=== PATIENT | female | born 1960 | race Caucasian/White ===

== ENCOUNTER 2018-11-05 13:40 | Emergency (ER) | payer OTHER ==
--- NOTE | 2018-11-05 13:50 | PDOC ---
History of Present Illness - General Chief Complaint: Altered Mental Status Stated Complaint: AMS/lethargy not walking now. Time Seen by Provider: 11/05/18 13:49 History Source: [facility] Records Exam Limitations: Dementia - History of Present Illness Initial Comments: 11/05/18 13:56 This is a 57 yo F with PMH of anxiety, bipolar disorder, PD with dementia, and HTN, BIBEMS from [facility] due to AMS. Per nursing staff, patient usually ambulatory with a walker and sometimes without it. She typically speaks clearly. Today she was unable to walk in a straight line even with staff help and became lethargic and incoherent. [facility] staff dose not report any other cute symptoms. She is full code and taken care of by Dr Gomes. On presentation patient answers some questions appropriately and complains of perianal pain, nbnb vomiting x 4 yesrterday and dysuria. Otherwise she is an unreliable historian. 11/05/18 14:34 Past History - Past Medical History Allergies/Adverse Reactions: Allergies Allergy/AdvReac Type Severity Reaction Status Date / Time No Known Allergies Allergy Verified 11/05/18 14:10 Home Medications: Ambulatory Orders Acetaminophen [Tylenol] 650 mg PO QID PRN 11/05/18 Aspirin 81 mg PO DAILY 11/05/18 Bacitracin - [Bacitracin Topical Ointment -] 1 applic TP BID 11/05/18 Bupropion HCl [Wellbutrin Sr] 150 mg PO BID 11/05/18 Calcium Carbonate/Vitamin D3 [Calcium 500 + Vit D Caplet] 1 each PO DAILY Divalproex Sodium [Depakote] 500 mg PO BID 11/05/18 Gabapentin [Neurontin] 600 mg PO TID 11/05/18 Lamotrigine [Lamictal] 50 mg PO DAILY 11/05/18 Lamotrigine [Lamictal] 75 mg PO HS 11/05/18 Magnesium Hydroxide [Milk of Magnesia] 400 mg PO PRN PRN 11/05/18 Melatonin 5 mg PO HS 11/05/18 Pravastatin Sodium [Pravachol] 40 mg PO HS 11/05/18 Quetiapine Fumarate [Seroquel] 100 tab PO DAILY 11/05/18 Quetiapine Fumarate [Seroquel] 300 mg PO HS 11/05/18 Sodium Phosphate,Chambers-Dibasic [Fleet Enema] 133 ml RC PRN PRN 11/05/18 CVA: Yes COPD: No Dementia: Yes Diabetes: No HTN: Yes Psychiatric Problems: Yes (bipolar, anxiety, PD with dementia) Seizures: No - Suicide/Smoking/Psychosocial Hx Smoking Status: No Smoking History: Unknown if ever smoked Have you smoked in the past 12 months: No Number of Cigarettes Smoked Daily: 0 Hx Alcohol Use: No Drug/Substance Use Hx: No Substance Use Type: None Review of Systems - Review of Systems Able to Perform ROS?: No ( ams ) *Physical Exam - Physical Exam General Appearance: No: Apparent Distress HEENT: positive: EOMI, TERENCE Neck: positive: Supple. negative: Tender, Carotid bruit, Lymphadenopathy (R), Lymphadenopathy (L) Respiratory/Chest: positive: Lungs Clear, Normal Breath Sounds Cardiovascular: positive: Regular Rate, S1, S2. negative: JVD Gastrointestinal/Abdominal: positive: Soft, Decreased BS, Tenderness (suprapubic ), Mass (suprapubic). negative: Rebound Rectal Exam: positive: other (perianal redness ) Musculoskeletal: negative: CVA Tenderness Integumentary: positive: Dry, Warm Neurologic: positive: vocational training teacher II-XII NML intact (grossly). negative: Fully Oriented (orianted to self and place but not time ), Alert (lethargic) ED Treatment Course - LABORATORY CBC & Chemistry Diagram: 11/05/18 14:55 11/05/18 14:55 - ADDITIONAL ORDERS Additional order review: Differential for AMS includes infectious/metabolic causes vs intaracraneal pathology 11/05/18 14:44 EKG ns 99 lbbb, no change from prior 11/05/18 14:46 11/05/18 15:48 labs significant for lactic acid of 2.5 and mild decrease in GFR. ua clean 11/05/18 17:26 CT head unremarkable for acute pathology 11/05/18 18:04 ams was likley caused by her verious antipsychitic medications, and mild lactic acidosis was likely caused by urinary retention (straight cathed 650 cc), which in turn may have resulted form anticholinergic effects of said medication. She is currently sleeping after being administered haldol 5 im in order to tolerate ct head. will reassess when she wakes up and if patient is back to baseline will transfer back to [facility] *DC/Admit/Observation/Transfer Diagnosis at time of Disposition: Altered mental status, Urinary retention - Discharge Dispostion [facility]position[facility] Condition at time of disposition: Stable Decision to Admit order: No - Referrals Referrals: Saulo Sutton [Primary Care Provider] - - Patient Instructions Additional Instructions: Patients altered mental status was likely caused by her antipsychitic medications. CT head was negative for acute pathology and there was no sign of infection on labs other than mild lactic acidosis 2.5 that was probably caused by urinary retention (650 cc of urine on straight cath), whihc was probably due to anticholenergic effects of the antipsychotic medications. She returned to baseline mental status in ED. We recommend patients list of antipsychotics to be reviewed and revised. - Post Discharge Activity
[2018-11-05 14:10] VITALS: TEMP 99.2; BMI 32.3
[2018-11-05 15:07] LABS: BASO % 0.2 % (0-2.0); EOS % 2.9 % (0-4.5); HEMATOCRIT 41.2 % (32.4-45.2); HEMOGLOBIN 14.2 GM/dL (10.7-15.3); LYMPH % 11.1 % (8-40); MCH 33.9 pg (25.7-33.7); MCHC 34.4 g/dl (32.0-36.0); MEAN CELL VOLUME 98.4 fl (80-96); MEAN PLT VOLUME 9.9 fl (7.5-11.1); MONO % 12.6 % (3.8-10.2); NEUT % 73.2 % (42.8-82.8); PLATELET COUNT 176 K/MM3 (134-434); RBC 4.18 M/mm3 (3.60-5.2); RDW 14.1 % (11.6-15.6); WHITE BLOOD COUNT 6.3 K/mm3 (4.0-10.0)
[2018-11-05] MEDS ORDERED: SODIUM CHLORIDE 0.9% 500 ML INFUS.BAG IV ONE (15:26)
[2018-11-05] MEDS ORDERED: HALOPERIDOL LACTATE 5 MG/ML IM ONE ×2 (15:30→15:55)
[2018-11-05] MEDS ORDERED: HALOPERIDOL LACTATE 5 MG/ML ONE (15:30)
--- NOTE | 2018-11-05 15:31 | PDOC ---
Attending Attestation - HPI HPI: This patient is a 57 year old female with PMHx of anxiety, bipolar disorder, PD with dementia, and HTN, who was sent from [facility] for AMS. As per nursing staff, patient usually ambulatory with walker and speech is coherent. Today, they state that she was unable to walk without staff assistance and she became incoherent and lethargic.Patient reports increased pain around her anus that comes and goes in intensity for the past couple of days. She also reports some pain on urination and 4 episodes of nbnb vomiting yesterday. She states that she hasn't had much of an appetite for the past couple of days. Denies any fever or chills. 11/05/18 15:33 - Physicial Exam PE: Vitals: Triage Vital signs reviewed. Hypotensive 103/58 General Appearance: no acute distress, well nourished well developed Head: Atraumatic Neck: Supple; No Nuchal rigidity Chest Wall: Nontender Cardiac: Slightl tachycardic. Regular rhythm, no murmurs, no rubs, no gallops Lungs: Clear to auscultation bilateral, good air movement bilaterally Abdomen: Soft, non distended, normal bowel sounds, non tender to palpation Extremities:Moving all extremities. No cyanosis, clubbing, or edema Skin: Warm and dry, no rashes or lesions, no rash, no petechiae Neuro: AOX1; Cranial Nerves 2-12 grossly intact, Strength intact to all extremities, Sensation intact to all extremities, gait normal Psych: Normal mood, normal affect <Shell Davis - Last Filed: 11/05/18 15:35> - Resident Resident Name: Sully Emanuel - ED Attending Attestation I have performed the following: I have examined & evaluated the patient, The case was reviewed & discussed with the resident, I agree w/resident's findings & plan, Exceptions are as noted - Medical Decision Making 11/05/18 16:23 This patient is a 57 year old female with PMHx of anxiety, bipolar disorder, PD with dementia, and HTN, who was sent from [facility] for AMS. As per nursing staff, patient usually ambulatory with walker and speech is coherent. Today, they state that she was unable to walk without staff assistance and she became incoherent and lethargic.Patient reports increased pain around her anus that comes and goes in intensity for the past couple of days. She also reports some pain on urination and 4 episodes of nbnb vomiting yesterday. She states that she hasn't had much of an appetite for the past couple of days. Altered mental status with difficulty ambulating positive lactic acid on laboratory analysis IV fluids ordered urinalysis pending Patient agitated noncompliant with head CT and straight catheter urinalysis Haldol given for anxiolysis Dr. Caballero to follow up labs head CT likely admit versus observation <Beto Stevenson - Last Filed: 11/05/18 16:23>
[2018-11-05 15:39] LABS: LIPASE 79 U/L (73-393); TRIGLYCERIDES 95 mg/dL (0-150)
[2018-11-05 15:43] LABS: ALBUMIN 3.4 g/dl (3.4-5.0); ALK PHOS 76 U/L (45-117); ANION GAP 9 MMOL/L (8-16); BILIRUBIN,TOTAL 0.3 mg/dL (0.2-1); BLOOD UREA NITROGEN 21 mg/dL (7-18); CHLORIDE 109 mmol/L (98-107); CO2 24 mmol/L (21-32); CREATININE 1.1 mg/dL (0.55-1.3); GLUCOSE,RANDOM 103 mg/dL (74-106); POTASSIUM 4.5 mmol/L (3.5-5.1); SGOT/AST 14 U/L (15-37); SGPT/ALT 17 U/L (13-61); SODIUM 142 mmol/L (136-145); TOT PROT 6.4 g/dl (6.4-8.2)
[2018-11-05 16:36] VITALS: BP 98/56; PULSE 79
[2018-11-05 17:55] LABS: URINE APPEARANCE CLEAR; URINE BILIRUBIN NEGATIVE (<2.0 mg/dL); URINE COLOR YELLOW; URINE GLUCOSE (UA) NEGATIVE (NEGATIVE); URINE KETONE NEGATIVE (NEGATIVE); URINE LEUK ESTERASE NEGATIVE (NEGATIVE); URINE NITRITE NEGATIVE (NEGATIVE); URINE PROTEIN NEGATIVE (NEGATIVE); URINE UROBILINOGEN NEGATIVE mg/dL (0.2-1.0)
--- NOTE | 2018-11-06 16:44 | EKG ---
Test Reason : Blood Pressure : / mmHG Vent. Rate : 099 BPM Atrial Rate : 099 BPM P-R Int : 184 ms QRS Dur : 160 ms QT Int : 396 ms P-R-T Axes : 032 022 230 degrees QTc Int : 508 ms NORMAL SINUS RHYTHM LEFT BUNDLE BRANCH BLOCK ABNORMAL ECG WHEN COMPARED WITH ECG OF 25-MAR-2013 16:23, T WAVE INVERSION NOW EVIDENT IN LATERAL LEADS Confirmed by Lia Renteria ([id number]) on 11/06/2018 4:44:11 PM Referred By: Confirmed By:Lia Renteria
== END 2018-11-06 02:20 ==
LOC: JER 13:40
PROC: 3E0337Z Introduction of Electrolytic and Water Balance Substance into Peripheral Vein, Percutaneous Approach (ICD-10-PCS; principal; 2018-11-05)
PROC: 3E033GC Introduction of Other Therapeutic Substance into Peripheral Vein, Percutaneous Approach (ICD-10-PCS; 2018-11-05)
DX: R41.82 Altered mental status, unspecified (principal); R33.9 Retention of urine, unspecified; F31.9 Bipolar disorder, unspecified; G20 Parkinson's disease; F02.80 Dementia in other diseases classified elsewhere, unspecified severity, without behavioral disturbance, psychotic disturbance, mood disturbance, and anxiety; I10 Essential (primary) hypertension; F41.0 Panic disorder [episodic paroxysmal anxiety]
CPT/HCPCS: 36415; 70450-TC; 80053; 81003; 83605; 83690; 84478; 85025; 87086; 93005; 93010; 99282-25

== ENCOUNTER 2018-12-14 22:51 | Emergency (ER) | payer OTHER ==
--- NOTE | 2018-12-15 00:34 | PDOC ---
History of Present Illness - General Stated Complaint: FALL Time Seen by Provider: 12/15/18 00:27 History Source: [facility] Exam Limitations: Dementia - History of Present Illness Occurred: reports: just prior to arrival Severity: reports: moderate Pain Location: reports: face Method of Injury: Yes: fall Loss of Consciousness: unsure Past History - Past Medical History Allergies/Adverse Reactions: Allergies Allergy/AdvReac Type Severity Reaction Status Date / Time No Known Allergies Allergy Verified 12/15/18 00:48 Home Medications: Ambulatory Orders Acetaminophen [Tylenol] 650 mg PO QID PRN 11/05/18 Aspirin 81 mg PO DAILY 11/05/18 Bacitracin - [Bacitracin Topical Ointment -] 1 applic TP BID 11/05/18 Bupropion HCl [Wellbutrin Sr] 150 mg PO BID 11/05/18 Calcium Carbonate/Vitamin D3 [Calcium 500 + Vit D Caplet] 1 each PO DAILY Divalproex Sodium [Depakote] 500 mg PO BID 11/05/18 Gabapentin [Neurontin] 600 mg PO TID 11/05/18 Lamotrigine [Lamictal] 50 mg PO DAILY 11/05/18 Lamotrigine [Lamictal] 75 mg PO HS 11/05/18 Magnesium Hydroxide [Milk of Magnesia] 400 mg PO PRN PRN 11/05/18 Melatonin 5 mg PO HS 11/05/18 Pravastatin Sodium [Pravachol] 40 mg PO HS 11/05/18 Quetiapine Fumarate [Seroquel] 100 tab PO DAILY 11/05/18 Quetiapine Fumarate [Seroquel] 300 mg PO HS 11/05/18 Sodium Phosphate,Donley-Dibasic [Fleet Enema] 133 ml RC PRN PRN 11/05/18 CVA: Yes COPD: No Dementia: Yes Diabetes: No HTN: Yes Psychiatric Problems: Yes (bipolar, anxiety, PD with dementia) Seizures: No - Suicide/Smoking/Psychosocial Hx Smoking Status: No Smoking History: Unknown if ever smoked Have you smoked in the past 12 months: No Number of Cigarettes Smoked Daily: 0 Hx Alcohol Use: No Drug/Substance Use Hx: No Substance Use Type: None Review of Systems - Review of Systems Able to Perform ROS?: No Is the patient limited Belarusian proficient: No Integumentary: Yes: Other (nasal bridge laceration) *Physical Exam - Physical Exam General Appearance: Yes: Nourished HEENT: positive: Normal Voice, Other (3 cm nasal bridge laceration) Respiratory/Chest: positive: Lungs Clear Cardiovascular: positive: Regular Rhythm, Regular Rate Gastrointestinal/Abdominal: positive: Soft Musculoskeletal: positive: Normal Inspection Extremity: positive: Normal Inspection Integumentary: positive: Normal Color, Warm Neurologic: positive: Alert, Other (dementia,Parkinson's w chronic h/o falling) ED Treatment Course - RADIOLOGY Radiology Studies Ordered: Category Date Time Status FACIAL BONES CT W/O CONTRAST [CT] Stat CT Scan 12/15/18 00:[address] WITHOUT CONTRAST [CT] Stat CT Scan 12/15/18 00:32 Ordered Medical Decision Making - Medical Decision Making 12/15/18 01:44 57-year-old female looking older than stated age. Brought in by ambulance from [facility] after a fall past medical history significant for dementia, Parkinson's disease, osteoarthritis, hypertension, bipolar disorder, low back pain, history of frequent falls 12/15/18 01:46 Patient is a poor historian and review of systems was difficult Patient sent for CAT scan of the head and facial bones, she will need closure of her facial laceration 12/15/18 01:59 review of meds: no anti coagulants *DC/Admit/Observation/Transfer - Discharge Dispostion Condition at time of disposition: Fair - Referrals - Patient Instructions - Post Discharge Activity
[2018-12-15] MEDS ORDERED: HALOPERIDOL LACTATE 5 MG/ML IM ONE (00:47)
[2018-12-15 00:49] VITALS: TEMP 97.9; BMI 31.5
[2018-12-15] MEDS ORDERED: HALOPERIDOL LACTATE 5 MG/ML ONE (02:07)
[2018-12-15] MEDS ORDERED: LORazepam 2 MG/ML SDV VIAL ONE (02:08)
--- NOTE | 2018-12-15 03:15 | PDOC ---
*Physical Exam - Vital Signs Last Vital Signs Temp Pulse Resp BP Pulse Ox 97.9 F 66 14 102/56 L 96 12/14/18 22:51 12/14/18 22:51 12/14/18 22:51 12/14/18 22:51 12/14/18 22:51 ED Treatment Course - RADIOLOGY Radiology Studies Ordered: Category Date Time Status CERVICAL SPINE CT W/O CONTR [CT] Stat CT Scan 12/15/18 02:48 Taken - Medications Given in the ED: ED Medications Discontinued Medications Generic Name Dose Route Start Last Admin Trade Name Paulo PRN Reason Stop Dose Admin Diphenhydramine HCl 25 mg 12/15/18 02:12 12/15/18 02:20 Benadryl Injection - IM 12/15/18 02:13 25 mg ONCE ONE Administration Haloperidol 5 mg 12/15/18 00:47 12/15/18 02:19 Haldol Injection (Fast Acting) - IM 12/15/18 00:48 5 mg ONCE ONE Administration Lorazepam 2 mg 12/15/18 02:08 12/15/18 02:19 Ativan Injection - IM 12/15/18 02:09 2 mg ONCE ONE Administration Medical Decision Making - Medical Decision Making 12/15/18 03:13 57-year-old female status post mechanical fall signed out to me to follow-up CT scan results and arrange flat serration repair Patient received Haldol prior to sign out to assist with imaging CT scan of the brain and facial bones was performed prior to patient becoming agitated She was sent over for CT scanning of the cervical spine which was medically necessary based on mechanism and patient's history of dementia 12/15/18 03:26 CT scan cervical spine was negative for fracture Wound repair by emergency department resident Discharge home to facility at [facility] *DC/Admit/Observation/Transfer Diagnosis at time of Disposition: Laceration of nose, Fall - Discharge Dispostion Disposition: HOME Condition at time of disposition: Stable Decision to Admit order: No - Referrals - Patient Instructions Printed Discharge Instructions: How to Prevent Falls, How to Care for a Laceration After Repair, DI for Laceration Repair With Dermabond, DI for Laceration Repair Steri-Strips - Post Discharge Activity
[2018-12-15 06:01] VITALS: BP 123/57; PULSE 61
== END 2018-12-15 07:57 ==
LOC: JER 22:51
PROC: 09QKXZZ Repair Nasal Mucosa and Soft Tissue, External Approach (ICD-10-PCS; principal; 2018-12-14)
PROC: 3E023NZ Introduction of Analgesics, Hypnotics, Sedatives into Muscle, Percutaneous Approach (ICD-10-PCS; 2018-12-14)
PROC: 3E023NZ Introduction of Analgesics, Hypnotics, Sedatives into Muscle, Percutaneous Approach (ICD-10-PCS; 2018-12-14)
PROC: 3E023GC Introduction of Other Therapeutic Substance into Muscle, Percutaneous Approach (ICD-10-PCS; 2018-12-14)
DX: S01.21XA Laceration without foreign body of nose, initial encounter (principal); W18.39XA Other fall on same level, initial encounter; Z91.81 History of falling; Y93.89 Activity, other specified; Y92.128 Other place in nursing home as the place of occurrence of the external cause; Y99.8 Other external cause status; I10 Essential (primary) hypertension; F31.9 Bipolar disorder, unspecified; F41.9 Anxiety disorder, unspecified; G20 Parkinson's disease; F02.80 Dementia in other diseases classified elsewhere, unspecified severity, without behavioral disturbance, psychotic disturbance, mood disturbance, and anxiety; M19.90 Unspecified osteoarthritis, unspecified site; Z86.73 Personal history of transient ischemic attack (TIA), and cerebral infarction without residual deficits
CPT/HCPCS: 12013; 70450-TC; 70486-TC; 72125-TC; 96372; 99282-25

== ENCOUNTER 2021-01-16 11:42 | Emergency (ER) | payer OTHER ==
[2021-01-16 12:01] VITALS: TEMP 99.3; BMI 22.2
[2021-01-16] MEDS ORDERED: ACETAMINOPHEN 500 MG TABLET (FP) PO ONE (14:52)
[2021-01-16] MEDS ORDERED: ACETAMINOPHEN 325 MG TABLET (FP) ONE (14:55)
[2021-01-16 19:44] VITALS: BP 134/71; PULSE 80
== END 2021-01-16 21:13 | disposition home or self-care (01) ==
LOC: JER 11:42
DX: Z04.89 Encounter for examination and observation for other specified reasons (principal)
CPT/HCPCS: 70450-TC; 72125-TC; 73060-TC-RT-FY; 99285-25

== ENCOUNTER 2021-01-21 21:29 | Inpatient (IN) | payer OTHER ==
[2021-01-21] MEDS ORDERED: PROPOFOL 1,000,000 MCG/100 ML VIAL IVPB SCH (21:45)
[2021-01-21 21:59] LABS: BASO % 0.4 % (0-2.0); EOS % 0.9 % (0-4.5); HEMATOCRIT 36.2 % (32.4-45.2); HEMOGLOBIN 12.3 GM/dL (10.7-15.3); MCH 32.8 pg (25.7-33.7); MCHC 33.9 g/dl (32.0-36.0); MEAN CELL VOLUME 96.7 fl (80-96); MEAN PLT VOLUME 8.8 fl (7.5-11.1); MONO % 6.3 % (3.8-10.2); NEUT % 79.4 % (42.8-82.8); PLATELET COUNT 188 K/MM3 (134-434); RBC 3.74 M/mm3 (3.60-5.2); RDW 13.6 % (11.6-15.6); WHITE BLOOD COUNT 9.3 K/mm3 (4.0-10.0)
[2021-01-21 22:07] LABS: INR 1.03 (0.83-1.09); PROTHROMBIN TIME (PATIENT) 12.4 SEC (9.7-13.0)
[2021-01-21 22:10] LABS: ACTIVATED PTT 25.6 SECONDS (25.2-36.5)
[2021-01-21 22:13] LABS: CHLORIDE 109 mmol/L (98-107); SODIUM 143 mmol/L (136-145)
[2021-01-21] MEDS ORDERED: MANNITOL 25% 12.5 GM/50 ML VIAL IVPB ONE (22:23)
[2021-01-21] MEDS ORDERED: levETIRAcetam 500 MG/5 ML INJECTION VIAL IVPB ONE ×2 (22:26→22:27)
[2021-01-21] MEDS ORDERED: PROPOFOL 1,000,000 MCG/100 ML VIAL ONE (22:27)
[2021-01-21 22:28] LABS: ALBUMIN 3.2 g/dl (3.4-5.0); ALK PHOS 94 U/L (45-117); ANION GAP 8 MMOL/L (8-16); BILIRUBIN,TOTAL 0.3 mg/dL (0.2-1); BLOOD UREA NITROGEN 14.5 mg/dL (7-18); CALCIUM 8.9 mg/dL (8.5-10.1); CO2 26 mmol/L (21-32); CREATININE 0.8 mg/dL (0.55-1.3); GLUCOSE,RANDOM 176 mg/dL (74-106); SGOT/AST 20 U/L (15-37); SGPT/ALT 13 U/L (13-61); TOT PROT 6.1 g/dl (6.4-8.2)
[2021-01-21] MEDS: PROPOFOL 1,000,000 MCG/100 ML VIAL IVPB SCH (22:35)
[2021-01-21 22:36] LABS: LACTIC ACID 2.4 mmol/L (0.4-2.0)
[2021-01-21 23:03] LABS: URINE APPEARANCE CLOUDY; URINE BILIRUBIN NEGATIVE (NEGATIVE); URINE COLOR YELLOW; URINE GLUCOSE (UA) NEGATIVE (NEGATIVE); URINE KETONE TRACE (NEGATIVE); URINE LEUK ESTERASE NEGATIVE (NEGATIVE); URINE NITRITE NEGATIVE (NEGATIVE); URINE PROTEIN NEGATIVE (NEGATIVE); URINE UROBILINOGEN 0.2 mg/dL (0.2-1.0)
[2021-01-21 23:55] LABS: ARTERIAL BLD GAS O2 SATURATION 99.8 mmHg (95-98); ARTERIAL BLOOD GAS BASE EXCESS -1.3 mmol/L (-2-2); ARTERIAL BLOOD GAS pH 7.395 (7.350-7.450)
[2021-01-21 23:57] LABS: ALLENS TEST POSITIVE
[2021-01-21 23:58] LABS: VENT MODE A/C; VENT RATE 16
[2021-01-22 06:57] LABS: BASO % 0.4 % (0-2.0); EOS % 0.4 % (0-4.5); HEMOGLOBIN 13.1 GM/dL (10.7-15.3); LYMPH % 14.8 % (8-40); MCHC 33.5 g/dl (32.0-36.0); MEAN CELL VOLUME 98.4 fl (80-96); MEAN PLT VOLUME 8.9 fl (7.5-11.1); MONO % 10.1 % (3.8-10.2); NEUT % 74.3 % (42.8-82.8); PLATELET COUNT 213 K/MM3 (134-434); RBC 3.97 M/mm3 (3.60-5.2); RDW 13.8 % (11.6-15.6); WHITE BLOOD COUNT 9.3 K/mm3 (4.0-10.0)
[2021-01-22 07:11] LABS: ALBUMIN 3.4 g/dl (3.4-5.0); BLOOD UREA NITROGEN 10.5 mg/dL (7-18); CALCIUM 8.5 mg/dL (8.5-10.1); MAGNESIUM 2.2 mg/dL (1.8-2.4)
[2021-01-22 07:14] LABS: CREATININE 0.7 mg/dL (0.55-1.3); PHOSPHOROUS 3.8 mg/dL (2.5-4.9)
[2021-01-22 07:16] LABS: BILIRUBIN,TOTAL 0.3 mg/dL (0.2-1); TOT PROT 6.5 g/dl (6.4-8.2)
[2021-01-22] MEDS: MUPIROCIN 2% TOPICAL OINTMENT FOR DECOLONIZATION NS SCH ×2 (09:00→22:20)
[2021-01-22] MEDS ORDERED: LABETALOL HCL 5 MG/1 ML (100MG/20 ML VIAL) IVPUSH PRN (11:02)
[2021-01-22] MEDS: PROPOFOL 1,000,000 MCG/100 ML VIAL IVPB SCH (22:20)
[2021-01-22] MEDS: CHLORHEXIDINE GLUCONATE 4% CLEANSER FOR DECOLONIZATION TP SCH (22:20)
[2021-01-23 07:18] LABS: HEMATOCRIT 45.8 % (32.4-45.2); HEMOGLOBIN 15.4 GM/dL (10.7-15.3); MCH 33.1 pg (25.7-33.7); MCHC 33.7 g/dl (32.0-36.0); MEAN CELL VOLUME 98.3 fl (80-96); MEAN PLT VOLUME 9.4 fl (7.5-11.1); PLATELET COUNT 313 K/MM3 (134-434); RBC 4.66 M/mm3 (3.60-5.2); RDW 13.9 % (11.6-15.6); WHITE BLOOD COUNT 15.2 K/mm3 (4.0-10.0)
[2021-01-23 07:36] LABS: ALBUMIN 3.3 g/dl (3.4-5.0)
[2021-01-23 07:37] LABS: BLOOD UREA NITROGEN 14.5 mg/dL (7-18)
[2021-01-23 07:39] LABS: CREATININE 0.6 mg/dL (0.55-1.3)
[2021-01-23 07:41] LABS: BILIRUBIN,TOTAL 0.5 mg/dL (0.2-1); TOT PROT 6.9 g/dl (6.4-8.2)
[2021-01-23 07:44] LABS: CALCIUM 9.8 mg/dL (8.5-10.1)
[2021-01-23] MEDS: MUPIROCIN 2% TOPICAL OINTMENT FOR DECOLONIZATION NS SCH ×2 (09:47→21:38)
[2021-01-23] MEDS: CHLORHEXIDINE GLUCONATE 4% CLEANSER FOR DECOLONIZATION TP SCH (21:39)
[2021-01-23] MEDS: PROPOFOL 1,000,000 MCG/100 ML VIAL IVPB SCH (21:57)
[2021-01-24] MEDS ORDERED: ACETAMINOPHEN 1000 MG/100 ML VIAL (NON FORMULARY) IVPB ONE (06:33)
[2021-01-24 07:11] LABS: BASO % 0.3 % (0-2.0); EOS % 0.2 % (0-4.5); HEMATOCRIT 46.2 % (32.4-45.2); HEMOGLOBIN 15.6 GM/dL (10.7-15.3); LYMPH % 14.4 % (8-40); MCH 33.2 pg (25.7-33.7); MCHC 33.8 g/dl (32.0-36.0); MEAN CELL VOLUME 98.4 fl (80-96); MEAN PLT VOLUME 9.7 fl (7.5-11.1); MONO % 10.3 % (3.8-10.2); NEUT % 74.8 % (42.8-82.8); PLATELET COUNT 296 K/MM3 (134-434); RDW 14.1 % (11.6-15.6); WHITE BLOOD COUNT 13.4 K/mm3 (4.0-10.0)
[2021-01-24 07:29] LABS: ALBUMIN 3.1 g/dl (3.4-5.0); CALCIUM 9.4 mg/dL (8.5-10.1)
[2021-01-24 07:30] LABS: BLOOD UREA NITROGEN 33.1 mg/dL (7-18); MAGNESIUM 2.4 mg/dL (1.8-2.4)
[2021-01-24 07:33] LABS: CREATININE 0.8 mg/dL (0.55-1.3)
[2021-01-24 07:34] LABS: BILIRUBIN,TOTAL 0.4 mg/dL (0.2-1); TOT PROT 6.6 g/dl (6.4-8.2)
[2021-01-24] MEDS ORDERED: SODIUM CHLORIDE 0.45% 1,000 ML IV SCH (08:15)
[2021-01-24] MEDS: MUPIROCIN 2% TOPICAL OINTMENT FOR DECOLONIZATION NS SCH ×2 (09:04→21:54)
[2021-01-24] MEDS: PROPOFOL 1,000,000 MCG/100 ML VIAL IVPB SCH ×2 (12:00→21:54)
[2021-01-24 18:52] LABS: CALCIUM 9.2 mg/dL (8.5-10.1)
[2021-01-24 18:53] LABS: BLOOD UREA NITROGEN 34.6 mg/dL (7-18)
[2021-01-24 18:56] LABS: CREATININE 0.8 mg/dL (0.55-1.3)
[2021-01-24] MEDS: CHLORHEXIDINE GLUCONATE 4% CLEANSER FOR DECOLONIZATION TP SCH (21:54)
[2021-01-25] MEDS: PROPOFOL 1,000,000 MCG/100 ML VIAL IVPB SCH (05:53)
[2021-01-25 07:29] LABS: HEMATOCRIT 42.5 % (32.4-45.2); HEMOGLOBIN 14.3 GM/dL (10.7-15.3); MCHC 33.7 g/dl (32.0-36.0); MEAN CELL VOLUME 97.9 fl (80-96); MEAN PLT VOLUME 9.3 fl (7.5-11.1); PLATELET COUNT 252 K/MM3 (134-434); RBC 4.34 M/mm3 (3.60-5.2); WHITE BLOOD COUNT 14.3 K/mm3 (4.0-10.0)
[2021-01-25 07:52] LABS: CALCIUM 8.9 mg/dL (8.5-10.1)
[2021-01-25 07:53] LABS: ALBUMIN 2.8 g/dl (3.4-5.0)
[2021-01-25 07:56] LABS: CREATININE 0.7 mg/dL (0.55-1.3)
[2021-01-25 07:57] LABS: BILIRUBIN,TOTAL 0.4 mg/dL (0.2-1); TOT PROT 6.1 g/dl (6.4-8.2)
[2021-01-25] MEDS: MUPIROCIN 2% TOPICAL OINTMENT FOR DECOLONIZATION NS SCH ×2 (09:37→21:21)
[2021-01-25] MEDS ORDERED: ACETAMINOPHEN INJECTION 100 ML IVPB ONE (17:05)
[2021-01-25] MEDS ORDERED: ACETAMINOPHEN 1000 MG/100 ML VIAL (NON FORMULARY) IVPB ONE (17:07)
[2021-01-25] MEDS: CHLORHEXIDINE GLUCONATE 4% CLEANSER FOR DECOLONIZATION TP SCH (21:21)
[2021-01-26] MEDS: PROPOFOL 1,000,000 MCG/100 ML VIAL IVPB SCH ×3 (06:18→21:53)
[2021-01-26 07:05] LABS: HEMATOCRIT 42.3 % (32.4-45.2); MCH 32.4 pg (25.7-33.7); MCHC 33.1 g/dl (32.0-36.0); MEAN CELL VOLUME 97.9 fl (80-96); MEAN PLT VOLUME 9.4 fl (7.5-11.1); PLATELET COUNT 237 K/MM3 (134-434); RBC 4.32 M/mm3 (3.60-5.2); RDW 14.2 % (11.6-15.6); WHITE BLOOD COUNT 17.6 K/mm3 (4.0-10.0)
[2021-01-26 07:25] LABS: ALBUMIN 2.6 g/dl (3.4-5.0); BLOOD UREA NITROGEN 29.2 mg/dL (7-18); CALCIUM 9.1 mg/dL (8.5-10.1)
[2021-01-26 07:28] LABS: CREATININE 0.8 mg/dL (0.55-1.3)
[2021-01-26 07:30] LABS: BILIRUBIN,TOTAL 0.5 mg/dL (0.2-1); TOT PROT 6.4 g/dl (6.4-8.2)
[2021-01-26] MEDS: MUPIROCIN 2% TOPICAL OINTMENT FOR DECOLONIZATION NS SCH ×2 (09:54→21:05)
[2021-01-26] MEDS ORDERED: SODIUM CHLORIDE 500 ML IV STA (19:13)
[2021-01-26] MEDS: PIPERACILLIN/TAZOB 3.375 GM 3.375 GM in DEXTROSE 5%-WATER - 50 ML IVPB SCH (19:30)
[2021-01-26] MEDS ORDERED: PIPERACILLIN/TAZOBACTAM 3.375 GM VIAL IVPB ONE (20:08)
[2021-01-26] MEDS ORDERED: DEXTROSE 5%-WATER - 50 ML IVPB ONE (20:08)
[2021-01-26] MEDS: CHLORHEXIDINE GLUCONATE 4% CLEANSER FOR DECOLONIZATION TP SCH (21:05)
[2021-01-26] MEDS: IBUPROFEN 800 MG/8 ML IJ IVPB PRN (21:06)
[2021-01-26] MEDS: SODIUM CHLORIDE 1,000 ML IV SCH (21:07)
[2021-01-26] MEDS ORDERED: VANCOMYCIN 1 GM in D5W (PRE-DOCKED) 1,000 MG/250 ML IVPB ONE (23:40)
[2021-01-26] MEDS ORDERED: VANCOMYCIN 1 GRAM (PRE-DOCKED) 1,000 MG/250 ML BAG IVPB ONE (23:45)
[2021-01-27] MEDS ORDERED: PIPERACILLIN/TAZOBACTAM 3.375 GM VIAL IVPB ONE ×3 (01:09→17:21)
[2021-01-27] MEDS ORDERED: DEXTROSE 5%-WATER - 50 ML IVPB ONE ×3 (01:09→17:21)
[2021-01-27] MEDS: PIPERACILLIN/TAZOB 3.375 GM 3.375 GM in DEXTROSE 5%-WATER - 50 ML IVPB SCH ×4 (01:25→17:25)
[2021-01-27 06:34] LABS: EPI CELLS 8 /uL (0-25.1); HYALINE CASTS 33 /uL (0-3.1); PH,URINE 5.5 (5.0-8.0); URINE APPEARANCE CLOUDY; URINE BACTERIA >9,000 /uL (0-1359); URINE BILIRUBIN NEGATIVE (NEGATIVE); URINE COLOR DK YELLOW; URINE GLUCOSE (UA) TRACE (NEGATIVE); URINE KETONE NEGATIVE (NEGATIVE); URINE LEUK ESTERASE 1+ (NEGATIVE); URINE NITRITE POSITIVE (NEGATIVE); URINE PROTEIN 3+ (NEGATIVE); URINE WBC 839 /uL (0-25.8)
[2021-01-27] MEDS: PROPOFOL 1,000,000 MCG/100 ML VIAL IVPB SCH (09:05)
[2021-01-27] MEDS ORDERED: VANCOMYCIN 1 GRAM (PRE-DOCKED) 1,000 MG/250 ML BAG IVPB ONE (12:15)
[2021-01-27] MEDS: IBUPROFEN 800 MG/8 ML IJ IVPB PRN (12:35)
[2021-01-27 14:58] VITALS: BMI 29.9
[2021-01-27] MEDS: CHLORHEXIDINE GLUCONATE 4% CLEANSER FOR DECOLONIZATION TP SCH (22:00)
[2021-01-27] MEDS: SODIUM CHLORIDE 1,000 ML IV SCH (22:00)
[2021-01-28] MEDS ORDERED: PIPERACILLIN/TAZOBACTAM 3.375 GM VIAL IVPB ONE ×3 (00:18→17:16)
[2021-01-28] MEDS ORDERED: DEXTROSE 5%-WATER - 50 ML IVPB ONE ×2 (00:19→08:37)
[2021-01-28] MEDS: PIPERACILLIN/TAZOB 3.375 GM 3.375 GM in DEXTROSE 5%-WATER - 50 ML IVPB SCH ×3 (01:41→17:38)
[2021-01-28] MEDS: IBUPROFEN 800 MG/8 ML IJ IVPB PRN (04:53)
[2021-01-28 06:50] LABS: BASO % 0.1 % (0-2.0); EOS % 0.1 % (0-4.5); HEMOGLOBIN 12.2 GM/dL (10.7-15.3); LYMPH % 7.2 % (8-40); MCH 32.8 pg (25.7-33.7); MCHC 33.9 g/dl (32.0-36.0); MEAN CELL VOLUME 96.7 fl (80-96); MEAN PLT VOLUME 10.1 fl (7.5-11.1); MONO % 8.3 % (3.8-10.2); NEUT % 84.3 % (42.8-82.8); PLATELET COUNT 141 K/MM3 (134-434); RBC 3.72 M/mm3 (3.60-5.2); RDW 13.7 % (11.6-15.6); WHITE BLOOD COUNT 17.4 K/mm3 (4.0-10.0)
[2021-01-28 07:15] LABS: CALCIUM 8.2 mg/dL (8.5-10.1)
[2021-01-28 07:16] LABS: BLOOD UREA NITROGEN 25.8 mg/dL (7-18)
[2021-01-28 07:19] LABS: CREATININE 0.7 mg/dL (0.55-1.3)
[2021-01-28 07:21] LABS: BILIRUBIN,TOTAL 0.8 mg/dL (0.2-1); TOT PROT 5.2 g/dl (6.4-8.2)
[2021-01-28 07:38] LABS: ALBUMIN 1.8 g/dl (3.4-5.0)
[2021-01-28] MEDS ORDERED: AMINO ACIDS 4.25%/D5W 1,000 ML IV SCH (10:45)
[2021-01-28] MEDS ORDERED: IBUPROFEN 800 MG/8 ML IJ IVPB PRN (16:47)
[2021-01-28] MEDS ORDERED: LABETALOL HCL 5 MG/1 ML (100MG/20 ML VIAL) IVPUSH PRN (16:47)
[2021-01-28] MEDS ORDERED: LABETALOL HCL 5 MG/1 ML (100MG/20 ML VIAL) IVPB PRN (16:50)
[2021-01-28] MEDS: SODIUM CHLORIDE 1,000 ML IV SCH (17:37)
[2021-01-28] MEDS ORDERED: CHLORHEXIDINE GLUCONATE 4% CLEANSER FOR DECOLONIZATION TP SCH (22:00)
[2021-01-29] MEDS ORDERED: DEXTROSE 5%-WATER - 50 ML IVPB ONE ×3 (01:28→18:00)
[2021-01-29] MEDS ORDERED: PIPERACILLIN/TAZOBACTAM 3.375 GM VIAL IVPB ONE ×3 (01:28→17:59)
[2021-01-29] MEDS: PIPERACILLIN/TAZOB 3.375 GM 3.375 GM in DEXTROSE 5%-WATER - 50 ML IVPB SCH ×3 (01:32→18:08)
[2021-01-29 08:10] LABS: HEMATOCRIT 32.5 % (32.4-45.2); MCH 33.1 pg (25.7-33.7); MCHC 33.8 g/dl (32.0-36.0); RBC 3.32 M/mm3 (3.60-5.2); RDW 13.9 % (11.6-15.6); WHITE BLOOD COUNT 13.7 K/mm3 (4.0-10.0)
[2021-01-29 08:11] LABS: MEAN PLT VOLUME 10.4 fl (7.5-11.1); PLATELET COUNT 151 K/MM3 (134-434)
[2021-01-29 08:44] LABS: CALCIUM 8.1 mg/dL (8.5-10.1)
[2021-01-29 08:45] LABS: ALBUMIN 1.7 g/dl (3.4-5.0); BLOOD UREA NITROGEN 33.8 mg/dL (7-18)
[2021-01-29 08:47] LABS: BILIRUBIN,TOTAL 0.5 mg/dL (0.2-1); CREATININE 0.8 mg/dL (0.55-1.3); TOT PROT 4.7 g/dl (6.4-8.2)
[2021-01-29] MEDS: AMINO ACIDS 4.25%/D5W 1,000 ML IV SCH (12:35)
[2021-01-29] MEDS: SODIUM CHLORIDE 1,000 ML IV SCH (18:08)
[2021-01-30] MEDS ORDERED: DEXTROSE 5%-WATER - 50 ML IVPB ONE ×3 (00:48→17:21)
[2021-01-30] MEDS ORDERED: PIPERACILLIN/TAZOBACTAM 3.375 GM VIAL IVPB ONE ×3 (00:48→17:21)
[2021-01-30] MEDS: PIPERACILLIN/TAZOB 3.375 GM 3.375 GM in DEXTROSE 5%-WATER - 50 ML IVPB SCH ×3 (01:17→17:36)
[2021-01-30] MEDS: ACETAMINOPHEN 1000 MG/100 ML VIAL (NON FORMULARY) IVPB PRN ×2 (05:34→23:33)
[2021-01-30] MEDS: AMINO ACIDS 4.25%/D5W 1,000 ML IV SCH ×2 (11:00→14:00)
[2021-01-30] MEDS ORDERED: METOPROLOL TARTRATE 5 MG/5 ML VIAL IVPB PRN (18:28)
[2021-01-30] MEDS: METOPROLOL TARTRATE 5 MG/5 ML VIAL IVPB SCH ×2 (18:57→23:56)
[2021-01-30] MEDS ORDERED: FAT EMULSION/OLIVE/SOY (CLINOLIPID) 250 ML EMULSION IV SCH (22:00)
[2021-01-31] MEDS: FAT EMULSION/OLIVE/SOY/PHOSPHO 250 ML IV SCH ×2 (00:29→21:25)
[2021-01-31] MEDS ORDERED: PIPERACILLIN/TAZOBACTAM 3.375 GM VIAL IVPB ONE ×3 (02:48→16:05)
[2021-01-31] MEDS ORDERED: DEXTROSE 5%-WATER - 50 ML IVPB ONE ×2 (02:49→09:30)
[2021-01-31] MEDS: PIPERACILLIN/TAZOB 3.375 GM 3.375 GM in DEXTROSE 5%-WATER - 50 ML IVPB SCH ×3 (03:02→17:19)
[2021-01-31] MEDS: METOPROLOL TARTRATE 5 MG/5 ML VIAL IVPB SCH ×6 (03:55→23:19)
[2021-01-31] MEDS: AMINO ACIDS 4.25%/D5W 1,000 ML IV SCH ×2 (09:39→13:43)
[2021-01-31] MEDS: NYSTATIN 500,000 UNITS/5 ML SUSPENSION PO SCH ×2 (17:18→23:25)
[2021-01-31 17:34] LABS: BASO % 0.3 % (0-2.0); EOS % 3.4 % (0-4.5); HEMATOCRIT 34.1 % (32.4-45.2); HEMOGLOBIN 11.3 GM/dL (10.7-15.3); LYMPH % 13.4 % (8-40); MCHC 33.2 g/dl (32.0-36.0); MEAN CELL VOLUME 96.7 fl (80-96); MEAN PLT VOLUME 10.2 fl (7.5-11.1); MONO % 5.6 % (3.8-10.2); NEUT % 77.3 % (42.8-82.8); PLATELET COUNT 200 K/MM3 (134-434); RBC 3.52 M/mm3 (3.60-5.2); RDW 13.7 % (11.6-15.6); WHITE BLOOD COUNT 15.4 K/mm3 (4.0-10.0)
[2021-01-31 18:04] LABS: ALBUMIN 1.9 g/dl (3.4-5.0); CALCIUM 7.8 mg/dL (8.5-10.1)
[2021-01-31 18:08] LABS: BILIRUBIN,TOTAL 0.6 mg/dL (0.2-1); CREATININE 0.6 mg/dL (0.55-1.3); TOT PROT 5.2 g/dl (6.4-8.2)
[2021-01-31 18:44] LABS: ANISOCYTOSIS 0; MACROCYTOSIS 0; PLATELET ESTIMATE NORMAL
[2021-02-01] MEDS ORDERED: DEXTROSE 5%-WATER - 50 ML IVPB ONE ×3 (01:55→17:03)
[2021-02-01] MEDS ORDERED: PIPERACILLIN/TAZOBACTAM 3.375 GM VIAL IVPB ONE ×3 (01:55→17:03)
[2021-02-01] MEDS: PIPERACILLIN/TAZOB 3.375 GM 3.375 GM in DEXTROSE 5%-WATER - 50 ML IVPB SCH ×3 (02:07→17:32)
[2021-02-01] MEDS: METOPROLOL TARTRATE 5 MG/5 ML VIAL IVPB SCH ×6 (02:07→23:00)
[2021-02-01] MEDS: AMINO ACIDS 4.25%/D5W 1,000 ML IV SCH ×3 (03:36→19:58)
[2021-02-01] MEDS: NYSTATIN 500,000 UNITS/5 ML SUSPENSION PO SCH ×4 (06:09→23:00)
[2021-02-01 09:25] LABS: ALBUMIN 1.9 g/dl (3.4-5.0)
[2021-02-01 09:27] LABS: BLOOD UREA NITROGEN 25.3 mg/dL (7-18)
[2021-02-01 09:28] LABS: CREATININE 0.6 mg/dL (0.55-1.3)
[2021-02-01 09:30] LABS: TOT PROT 5.2 g/dl (6.4-8.2)
[2021-02-01 09:31] LABS: BILIRUBIN,TOTAL 0.6 mg/dL (0.2-1)
[2021-02-01] MEDS: FAT EMULSION/OLIVE/SOY/PHOSPHO 250 ML IV SCH (21:23)
[2021-02-02] MEDS ORDERED: PIPERACILLIN/TAZOBACTAM 3.375 GM VIAL IVPB ONE ×3 (01:46→17:17)
[2021-02-02] MEDS ORDERED: DEXTROSE 5%-WATER - 50 ML IVPB ONE ×3 (01:47→17:17)
[2021-02-02] MEDS: METOPROLOL TARTRATE 5 MG/5 ML VIAL IVPB SCH ×6 (02:09→23:12)
[2021-02-02] MEDS: PIPERACILLIN/TAZOB 3.375 GM 3.375 GM in DEXTROSE 5%-WATER - 50 ML IVPB SCH ×3 (02:09→17:34)
[2021-02-02] MEDS: NYSTATIN 500,000 UNITS/5 ML SUSPENSION PO SCH ×4 (06:00→23:13)
[2021-02-02] MEDS: AMINO ACIDS 4.25%/D5W 1,000 ML IV SCH (13:29)
[2021-02-02] MEDS: FAT EMULSION/OLIVE/SOY/PHOSPHO 250 ML IV SCH (21:57)
[2021-02-03] MEDS ORDERED: DEXTROSE 5%-WATER - 50 ML IVPB ONE ×3 (01:12→17:28)
[2021-02-03] MEDS ORDERED: PIPERACILLIN/TAZOBACTAM 3.375 GM VIAL IVPB ONE ×3 (01:12→17:27)
[2021-02-03] MEDS: PIPERACILLIN/TAZOB 3.375 GM 3.375 GM in DEXTROSE 5%-WATER - 50 ML IVPB SCH ×3 (01:32→17:36)
[2021-02-03] MEDS: METOPROLOL TARTRATE 5 MG/5 ML VIAL IVPB SCH ×7 (03:05→23:27)
[2021-02-03] MEDS: NYSTATIN 500,000 UNITS/5 ML SUSPENSION PO SCH ×4 (05:36→23:28)
[2021-02-03] MEDS: AMINO ACIDS 4.25%/D5W 1,000 ML IV SCH ×3 (05:36→23:35)
[2021-02-03 07:47] LABS: BASO % 0.6 % (0-2.0); EOS % 3.1 % (0-4.5); HEMATOCRIT 35.8 % (32.4-45.2); HEMOGLOBIN 12.3 GM/dL (10.7-15.3); MCH 32.7 pg (25.7-33.7); MCHC 34.3 g/dl (32.0-36.0); MEAN CELL VOLUME 95.3 fl (80-96); MEAN PLT VOLUME 9.8 fl (7.5-11.1); MONO % 4.3 % (3.8-10.2); PLATELET COUNT 360 K/MM3 (134-434); RBC 3.75 M/mm3 (3.60-5.2); RDW 13.6 % (11.6-15.6); WHITE BLOOD COUNT 16.4 K/mm3 (4.0-10.0)
[2021-02-03 08:15] LABS: ALBUMIN 2.2 g/dl (3.4-5.0); BLOOD UREA NITROGEN 19.9 mg/dL (7-18); CALCIUM 8.1 mg/dL (8.5-10.1)
[2021-02-03 08:19] LABS: CREATININE 0.6 mg/dL (0.55-1.3)
[2021-02-03 08:20] LABS: BILIRUBIN,TOTAL 0.6 mg/dL (0.2-1); TOT PROT 5.8 g/dl (6.4-8.2)
[2021-02-03] MEDS: KCL 10 MEQ IVPB 10 MEQ/100 ML INFUS.BAG IVPB SCH ×3 (13:01→16:56)
[2021-02-03] MEDS: FAT EMULSION/OLIVE/SOY/PHOSPHO 250 ML IV SCH (21:44)
[2021-02-04] MEDS ORDERED: DEXTROSE 5%-WATER - 50 ML IVPB ONE ×2 (00:50→08:49)
[2021-02-04] MEDS ORDERED: PIPERACILLIN/TAZOBACTAM 3.375 GM VIAL IVPB ONE ×2 (00:50→08:49)
[2021-02-04] MEDS: PIPERACILLIN/TAZOB 3.375 GM 3.375 GM in DEXTROSE 5%-WATER - 50 ML IVPB SCH ×2 (01:13→10:55)
[2021-02-04] MEDS: METOPROLOL TARTRATE 5 MG/5 ML VIAL IVPB SCH ×5 (03:33→20:36)
[2021-02-04] MEDS: NYSTATIN 500,000 UNITS/5 ML SUSPENSION PO SCH ×3 (05:00→18:01)
[2021-02-04 08:29] LABS: BASO % 0.4 % (0-2.0); EOS % 3.2 % (0-4.5); HEMATOCRIT 33.9 % (32.4-45.2); HEMOGLOBIN 11.5 GM/dL (10.7-15.3); LYMPH % 12.8 % (8-40); MCH 32.2 pg (25.7-33.7); MCHC 33.8 g/dl (32.0-36.0); MEAN CELL VOLUME 95.3 fl (80-96); MEAN PLT VOLUME 9.6 fl (7.5-11.1); MONO % 3.4 % (3.8-10.2); NEUT % 80.2 % (42.8-82.8); PLATELET COUNT 354 K/MM3 (134-434); RBC 3.56 M/mm3 (3.60-5.2); RDW 13.7 % (11.6-15.6); WHITE BLOOD COUNT 13.9 K/mm3 (4.0-10.0)
[2021-02-04 09:08] LABS: ALBUMIN 2.1 g/dl (3.4-5.0); BLOOD UREA NITROGEN 21.2 mg/dL (7-18); CALCIUM 8.3 mg/dL (8.5-10.1); MAGNESIUM 2.2 mg/dL (1.8-2.4)
[2021-02-04 09:11] LABS: CREATININE 0.6 mg/dL (0.55-1.3)
[2021-02-04 09:13] LABS: BILIRUBIN,TOTAL 0.6 mg/dL (0.2-1); TOT PROT 5.6 g/dl (6.4-8.2)
[2021-02-04] MEDS: AMINO ACIDS 4.25%/D5W 1,000 ML IV SCH (14:33)
[2021-02-04] MEDS ORDERED: PT OWN MED DRAWER 7, Y5N ONE (21:06)
[2021-02-04] MEDS: FAT EMULSION/OLIVE/SOY/PHOSPHO 250 ML IV SCH (21:47)
[2021-02-05] MEDS: METOPROLOL TARTRATE 5 MG/5 ML VIAL IVPB SCH ×4 (01:03→10:52)
[2021-02-05] MEDS: NYSTATIN 500,000 UNITS/5 ML SUSPENSION PO SCH ×3 (01:18→14:58)
[2021-02-05 10:53] VITALS: BP 151/80; PULSE 85
[2021-02-05] MEDS: AMINO ACIDS 4.25%/D5W 1,000 ML IV SCH (14:57)
[2021-02-05 15:00] VITALS: TEMP 98.6
== END 2021-02-05 15:10 | disposition short-term general hospital (02) | DRG 951 ==
LOC: JER 21:29 → JERBED 22:33 → J2W 01-22 03:02 → J8W 01-28 16:25
PROVIDERS: ADMIT Internal Medicine; ATTEND Internal Medicine
PROC: 5A1955Z Respiratory Ventilation, Greater than 96 Consecutive Hours (ICD-10-PCS; principal; 2021-01-21)
PROC: 0DH67UZ Insertion of Feeding Device into Stomach, Via Natural or Artificial Opening (ICD-10-PCS; 2021-01-21)
DX: S06.5X6A Traumatic subdural hemorrhage with loss of consciousness greater than 24 hours without return to pre-existing conscious level with patient surviving, initial encounter (principal); F31.9 Bipolar disorder, unspecified; J96.00 Acute respiratory failure, unspecified whether with hypoxia or hypercapnia; J69.0 Pneumonitis due to inhalation of food and vomit; R41.89 Other symptoms and signs involving cognitive functions and awareness; F41.9 Anxiety disorder, unspecified; I10 Essential (primary) hypertension; G20 Parkinson's disease; F02.80 Dementia in other diseases classified elsewhere, unspecified severity, without behavioral disturbance, psychotic disturbance, mood disturbance, and anxiety; D72.829 Elevated white blood cell count, unspecified; G93.1 Anoxic brain damage, not elsewhere classified; R29.6 Repeated falls; E78.5 Hyperlipidemia, unspecified; R78.81 Bacteremia; R41.82 Altered mental status, unspecified; R50.9 Fever, unspecified; W18.39XA Other fall on same level, initial encounter; Z66 Do not resuscitate; Y92.098 Other place in other non-institutional residence as the place of occurrence of the external cause
CPT/HCPCS: 36415; 36600; 70450-TC; 71045-TC-FY; 72125-TC; 74230-TC-FY; 80048; 80053; 80164; 80175; 81003; 82550; 82803; 83605; 83735; 84100; 84484; 85025; 85027; 85610; 85730; 87040; 87086; 87804; 92611-GN; 93005; 93010; 94002; 99285-25; C9803; J0131; U0003; U0005